=== PATIENT | female | born 1995 | race Hispanic/Latino ===

== ENCOUNTER 2019-03-18 10:18 | Emergency (ER) | payer OTHER ==
[~2019-03-18] VITALS: Ht 162.6 cm; Wt 54.5 kg
[2019-03-18 12:32] LABS: BASO % 0.6 % (0.0-1.0); EOS # 0.1 10^3/uL (0.0-0.5); EOS % 1.3 % (0.0-3.0); HEMATOCRIT 41.7 % (36.0-47.0); LYMPH % 18.8 % (24.0-44.0); MEAN CORPUSCULAR HGB CONC 33.6 g/dl (32.0-36.5); MEAN CORPUSCULAR VOLUME 86.3 fl (80.0-96.0); MONO # 0.4 10^3/uL (0.0-0.8); MONO % 7.4 % (0.0-5.0); NEUTROPHILS # 3.9 10^3/uL (1.5-8.5); NEUTROPHILS % 71.5 % (36.0-66.0); PLATELET COUNT, AUTOMATED 220 10^3/uL (150-450); RED BLOOD COUNT 4.83 10^6/uL (4.00-5.40); WHITE BLOOD COUNT 5.4 10^3/uL (4.0-10.0)
--- NOTE | 2019-03-18 12:32 | REP ---
Clinical: Pelvic pain. Technique: Transabdominal pelvic ultrasound with color Doppler evaluation of the ovaries. Findings: Bladder is collapsed. Heterogeneous anteverted uterus measures 9.4 x 6.4 x 4.1 cm. Endometrial complex measures 2.4 mm thickness. No discrete uterine or endometrial abnormalities are appreciated. Bilateral ovaries are normal in appearance and vascularity without torsion. Right ovary measures 2.8 x 2.5 x 1.5 cm (RI 0.56). Left ovary measures 2.4 x 2.0 x 1.6 cm (RI 0.50). No pelvic fluid or adnexal mass lesion. Impression: Normal pelvic ultrasound. Electronically Signed by Catalino Chambers MD 03/18/2019 12:24 P
[2019-03-18 12:53] LABS: HCG, SERUM QUALITATIVE NEGATIVE (NEGATIVE)
[2019-03-18] MEDS ORDERED: FLAG500T PO (15:07)
[2019-03-18 15:23] VITALS: BP 115/59
[2019-03-18 15:33] LABS: CHLAMYDIA DNA AMPLIFICATION NEGATIVE (NEGATIVE); GC DNA AMPLIFICATION NEGATIVE (NEGATIVE)
== END 2019-03-18 15:19 | disposition home or self-care (01) ==
LOC: M ED 10:18
DX: N76.0 Acute vaginitis (principal); E16.2 Hypoglycemia, unspecified; Z87.440 Personal history of urinary (tract) infections